=== PATIENT | female | born 1945 | race Caucasian/White ===

== ENCOUNTER 2017-07-08 12:02 | Inpatient (IN) | payer MEDICARE, OTHER ==
[2017-07-08] MEDS: SOD CHLORIDE 0.9% 1,000 ML IV (14:48)
[2017-07-08 15:02] LABS: ADD MAN DIFF? NO
[2017-07-08 15:04] LABS: BASOPHIL # 0.1 10^3/ul (0.0-0.1); BASOPHILS % 0.7 % (0.0-2.0); EOSINOPHILS # 0.2 10^3/ul (0.0-0.5); EOSINOPHILS % 2.6 % (0.0-7.0); HEMATOCRIT 45.8 % (37.0-47.0); LYMPHOCYTES # 3.5 10^3/ul (0.8-2.9); LYMPHOCYTES % 38.9 % (15.0-51.0); MEAN CORPUSCULAR HEMOGLOBIN 30.3 pg (29.0-33.0); MEAN CORPUSCULAR HGB CONC 32.8 g/dl (32.0-37.0); MEAN CORPUSCULAR VOLUME 92.5 fl (82.0-101.0); MEAN PLATELET VOLUME 10.7 fl (7.4-10.4); MONOCYTE # 0.7 10^3/ul (0.3-0.9); MONOCYTES % 7.6 % (0.0-11.0); NEUTROPHIL # 4.5 10^3/ul (1.6-7.5); NEUTROPHILS % 49.9 % (39.0-77.0); PLATELET COUNT 364 10^3/UL (140-415); RED BLOOD COUNT 4.95 10^6/ul (4.20-5.40)
[2017-07-08 15:04] LABS: WHITE BLOOD COUNT 8.9 10^3/ul (4.8-10.8)
[2017-07-08 15:21] LABS: ANION GAP 16 (8-16); BLOOD UREA NITROGEN 28 mg/dl (7-20); CALCIUM 9.9 mg/dl (8.4-10.2); CARBON DIOXIDE 27 mmol/L (21-31); CHLORIDE 106 mmol/L (97-110); CREATININE 1.09 mg/dl (0.44-1.00); GLUCOSE 105 mg/dl (70-220); POTASSIUM 4.2 mmol/L (3.5-5.1); SODIUM 145 mmol/L (135-144)
[2017-07-08 15:35] LABS: INR 0.93; PROTIME 12.6 Sec (11.9-14.9)
[2017-07-08 15:36] LABS: PARTIAL THROMBOPLASTIN TIME 30.3 Sec (25.0-35.0); TROPONIN-I < 0.012 ng/ml (0.00-0.12)
[2017-07-08] MEDS: DILTIAZEM 60 MG TAB PO (16:51)
[2017-07-08] MEDS: DIGOXIN 500 MCG INJ IV (17:01)
[2017-07-08] MEDS ORDERED: BENZONATATE 100 MG CAP PO (18:00)
[2017-07-08] MEDS ORDERED: ONDANSETRON 4 MG INJ IV (18:00)
[2017-07-08] MEDS ORDERED: NACL 0.9% 3 ML SYG IV (18:00)
[2017-07-08] MEDS: ATORVASTATIN 40 MG TAB PO (20:57)
[2017-07-08] MEDS: GABAPENTIN 300 MG CAP PO (20:58)
[2017-07-08] MEDS: CYCLOBENZAPRINE 10 MG TAB PO (22:55)
[2017-07-09] MEDS: ZOLPIDEM 5 MG TAB PO ×2 (00:13→23:32)
[2017-07-09] MEDS: DILTIAZEM 60 MG TAB NGT ×5 (00:19→23:34)
[2017-07-09 08:17] LABS: ADD MAN DIFF? NO
[2017-07-09 08:22] LABS: WHITE BLOOD COUNT 7.1 10^3/ul (4.8-10.8)
[2017-07-09 08:22] LABS: BASOPHIL # 0.1 10^3/ul (0.0-0.1); BASOPHILS % 0.8 % (0.0-2.0); EOSINOPHILS # 0.3 10^3/ul (0.0-0.5); EOSINOPHILS % 4.5 % (0.0-7.0); HEMATOCRIT 38.7 % (37.0-47.0); HEMOGLOBIN 12.9 g/dl (12.0-16.0); LYMPHOCYTES % 28.2 % (15.0-51.0); MEAN CORPUSCULAR HEMOGLOBIN 30.7 pg (29.0-33.0); MEAN CORPUSCULAR HGB CONC 33.3 g/dl (32.0-37.0); MEAN CORPUSCULAR VOLUME 92.1 fl (82.0-101.0); MONOCYTE # 0.7 10^3/ul (0.3-0.9); MONOCYTES % 9.7 % (0.0-11.0); NEUTROPHILS % 56.5 % (39.0-77.0); NUCLEATED RED BLOOD CELLS # 0.7 10^3/ul (0.0-0.0); NUCLEATED RED BLOOD CELLS% 9.2 /100WBC (0.0-0.0); PLATELET COUNT 297 10^3/UL (140-415); RED CELL DISTRIBUTION WIDTH 14.3 % (11.5-14.5)
[2017-07-09 08:39] LABS: CHOL/HDL RATIO 3.1 RATIO; HDL CHOLESTEROL 56 mg/dl (33-92); LDL CHOLESTEROL,CALCULATED 95 mg/dl; TRIGLYCERIDES 121 mg/dl (0-149)
[2017-07-09 08:39] LABS: CHOLESTEROL 175 mg/dl (100-200)
[2017-07-09 08:47] LABS: ALANINE AMINOTRANSFERASE 30 IU/L (13-69); ALBUMIN 3.6 g/dl (3.3-4.9); ALBUMIN/GLOBULIN RATIO 1.44; ALKALINE PHOSPHATASE 94 IU/L (42-121); ANION GAP 14 (8-16); ASPARTATE AMINO TRANSFERASE 22 IU/L (15-46); BILIRUBIN,INDIRECT 0.4 mg/dl (0-1.1); BILIRUBIN,TOTAL 0.4 mg/dl (0.2-1.3); BLOOD UREA NITROGEN 19 mg/dl (7-20); CALCIUM 9.3 mg/dl (8.4-10.2); CARBON DIOXIDE 24 mmol/L (21-31); CHLORIDE 112 mmol/L (97-110); CREATININE 0.81 mg/dl (0.44-1.00); GLUCOSE 100 mg/dl (70-220); POTASSIUM 3.9 mmol/L (3.5-5.1); SODIUM 146 mmol/L (135-144); TOTAL PROTEIN 6.1 g/dl (6.1-8.1)
[2017-07-09] MEDS ORDERED: ENOXAPARIN 30 MG/0.3 ML SYG SC (09:00)
[2017-07-09] MEDS: APIXABAN 5 MG TABLET PO ×2 (09:02→20:27)
[2017-07-09] MEDS: GABAPENTIN 300 MG CAP PO ×3 (09:02→20:27)
[2017-07-09] MEDS: CEPHALEXIN 250 MG CAP PO (09:02)
[2017-07-09] MEDS: TIOTROPIUM 18 MCG CAPSULE INHA DEV INH (11:05)
[2017-07-09] MEDS: NAPROXEN 250 MG TAB PO (12:30)
[2017-07-09] MEDS: ATORVASTATIN 40 MG TAB PO (20:26)
[2017-07-09] MEDS: CYCLOBENZAPRINE 10 MG TAB PO (20:27)
[2017-07-09] MEDS: ACETAMINOPHEN 325 MG TAB PO (21:01)
[2017-07-10] MEDS: DILTIAZEM 60 MG TAB NGT ×2 (05:29→12:20)
[2017-07-10] MEDS: TIOTROPIUM 18 MCG CAPSULE INHA DEV INH (08:25)
[2017-07-10] MEDS: APIXABAN 5 MG TABLET PO (08:26)
[2017-07-10] MEDS: GABAPENTIN 300 MG CAP PO ×2 (08:27→12:20)
[2017-07-10] MEDS: CEPHALEXIN 250 MG CAP PO (08:27)
[2017-07-10] MEDS: ACETAMINOPHEN 325 MG TAB PO (08:27)
[2017-07-10 12:20] LABS: ADD MAN DIFF? NO
[2017-07-10 12:22] LABS: BASOPHIL # 0.1 10^3/ul (0.0-0.1); BASOPHILS % 0.7 % (0.0-2.0); EOSINOPHILS # 0.3 10^3/ul (0.0-0.5); EOSINOPHILS % 3.4 % (0.0-7.0); HEMATOCRIT 39.4 % (37.0-47.0); LYMPHOCYTES # 1.7 10^3/ul (0.8-2.9); LYMPHOCYTES % 23.6 % (15.0-51.0); MEAN CORPUSCULAR HEMOGLOBIN 30.3 pg (29.0-33.0); MEAN CORPUSCULAR VOLUME 91.8 fl (82.0-101.0); MEAN PLATELET VOLUME 10.8 fl (7.4-10.4); MONOCYTE # 0.7 10^3/ul (0.3-0.9); MONOCYTES % 9.7 % (0.0-11.0); NEUTROPHIL # 4.6 10^3/ul (1.6-7.5); NEUTROPHILS % 62.3 % (39.0-77.0); PLATELET COUNT 285 10^3/UL (140-415); RED BLOOD COUNT 4.29 10^6/ul (4.20-5.40); RED CELL DISTRIBUTION WIDTH 14.3 % (11.5-14.5)
[2017-07-10 12:22] LABS: WHITE BLOOD COUNT 7.3 10^3/ul (4.8-10.8)
[2017-07-10 12:44] LABS: ANION GAP 13 (8-16); BLOOD UREA NITROGEN 20 mg/dl (7-20); CALCIUM 9.6 mg/dl (8.4-10.2); CARBON DIOXIDE 29 mmol/L (21-31); CHLORIDE 109 mmol/L (97-110); CREATININE 0.98 mg/dl (0.44-1.00); GLUCOSE 86 mg/dl (70-220); MAGNESIUM 2.1 mg/dl (1.7-2.5); POTASSIUM 4.5 mmol/L (3.5-5.1); SODIUM 146 mmol/L (135-144)
[2017-07-10] MEDS: NAPROXEN 250 MG TAB PO (13:47)
[2017-07-11] MEDS ORDERED: DILTIAZEM (CD) 300 MG CAP PO (09:00)
== END 2017-07-10 17:08 | disposition home or self-care (01) | DRG 309 ==
LOC: E/R 12:02 → MS4 16:28
DX: I48.0 Paroxysmal atrial fibrillation (principal); N39.0 Urinary tract infection, site not specified; J44.9 Chronic obstructive pulmonary disease, unspecified; Z87.891 Personal history of nicotine dependence; E78.5 Hyperlipidemia, unspecified; D64.9 Anemia, unspecified; Z79.01 Long term (current) use of anticoagulants
CPT/HCPCS: 36415; 71045; 80048; 80053; 80061; 83735; 84443; 84484; 85025; 85610; 85730; 93005; 99285-25